=== PATIENT | male | born 1965 | race Caucasian/White ===

== ENCOUNTER → 2017-04-17 | Outpatient (CLI) | payer OTHER ==
[~2017-04-17] MED LIST: ALLOPURINOL300 MG PO; Aspirin E.C. PO; CARVEDILOL12.5 MG PO; CARVEDILOL3.125 MG PO; CHLORDIAZEPOXID25 MG PO; COLCRYS0.6 MG PO; DAILY VALUE1 EACH PO; DILAUDID2 MG PO; FENOGLIDE120 MG PO; FLEXERIL10 MG PO; FOLIC ACID1 MG PO; FUROSEMIDE40 MG PO; INDOCIN50 MG PO; LISINOPRIL10 MG PO; LISINOPRIL2.5 MG PO; LYRICA100 MG PO; NABUMETONE750 MG PO; NAPROSYN500 MG PO; NEURONTIN300 MG PO; NORCO 5/3251 TABLET PO; THERAGRAN1 TABLET PO; TRAMADOL HCL50 MG PO; VITAMIN B-1100 MG PO; [UNRECOGNIZED DRUG - REMARK]
[2017-04-17 10:32] LABS: HEMATOCRIT 44.2 % (38.0-50.0); MCH 32.4 PG (29.0-34.0); MCHC 35.3 G/DL (30.0-36.0); MCV 91.7 FL (86-99); MEAN PLAT.VOLUME 10.4 uM^3 (9.0-12.4); PLATELET COUNT 167 K/uL (156-360); RBC DIS.WIDTH-SD 40.2 % (39-53); RED BLOOD COUNT 4.82 M/uL (4.00-5.50); WHITE BLOOD COUNT 7.7 K/uL (4.1-10.2)
[2017-04-17 10:40] LABS: PROTHROMBIN TIME 10.5 (9.2-11.2); PTT 29.4 (25-32)
== END | disposition home or self-care (01) ==
LOC: OPR 04-06 09:00 → EDSTATUS 04-10 09:00 → OPR 04-10 09:00
PROVIDERS: Specialist
DX: K75.89 Other specified inflammatory liver diseases (principal); E83.119 Hemochromatosis, unspecified; I42.9 Cardiomyopathy, unspecified; I50.9 Heart failure, unspecified; Z87.891 Personal history of nicotine dependence
CPT/HCPCS: 77012; 85027; 85610; 85730; 88307; 88313; J3010

== ENCOUNTER → 2018-04-21 | Outpatient (CLI) | payer OTHER | END | disposition home or self-care (01) | LOC: RAD 09:59 | DX: Z02.71 Encounter for disability determination (principal); M19.012 Primary osteoarthritis, left shoulder | CPT/HCPCS: 73020; 73630 ==